=== PATIENT | female | born 1950 | race Hispanic/Latino ===

== ENCOUNTER → 2021-04-21 | Outpatient (CLI) | payer OTHER ==
[~2021-04-21] MED LIST: ALEN70TA80 PO; GABA300C PO; LEVE-43 PO; MELO-108 PO; MONT10TA32 PO; OMEP40CA21 PO; PIND10TA2 PO; SERT50TA PO
== END | disposition home or self-care (01) ==
LOC: CANSCHCLI → SHCH 14:57
PROVIDERS: ATTEND Internal Medicine Cardiovascular Disease
DX: Z09 Encounter for follow-up examination after completed treatment for conditions other than malignant neoplasm (principal)
CPT/HCPCS: 93971

== ENCOUNTER 2023-08-24 09:42 | Day surgery (SDC) | payer OTHER ==
[2023-08-20 12:29] LABS: BASOPHILS # (AUTO) 0.03 K/uL (0.00-0.20); BASOPHILS % (AUTO) 0.5 % (0.0-5.0); EOSINOPHILS # (AUTO) 0.11 K/uL (0.00-0.70); IMMATURE GRANULOCYTE ABSOLUTE 0.01 K/uL (0-1); LYMPHOCYTES # (AUTO) 1.9 K/uL (1.0-4.8); LYMPHOCYTES % (AUTO) 34.6 % (21.0-51.0); MEAN CORPUSCULAR HEMOGLOBIN 33.4 pg (27.0-33.0); MEAN CORPUSCULAR HGB CONC 34.1 g/dL (32.0-36.0); MEAN CORPUSCULAR VOLUME 98.1 fL (79-99); MONOCYTES # (AUTO) 0.6 K/uL (0.1-1.0); MONOCYTES % (AUTO) 10.8 % (3.0-13.0); NEUTROPHILS # (AUTO) 2.9 K/uL (1.8-7.7); NEUTROPHILS % (AUTO) 51.9 % (40.0-77.0); PLATELET COUNT (AUTO) 205 K/uL (130-400); RED BLOOD CELL COUNT(AUTO) 3.77 MIL/uL (4.00-5.50); RED CELL DISTRIBUTION WIDTH 11.9 % (11.0-15.5); WHITE BLOOD COUNT (AUTO) 5.6 K/uL (4.8-10.8)
[2023-08-20 12:45] LABS: INR 0.98 (0.85-1.15); PROTHROMBIN TIME 11.4 SEC (9.6-11.6)
[2023-08-20 12:46] LABS: CREATININE 0.9 mg/dL (0.5-1.5); POTASSIUM 4.8 mmol/L (3.5-5.1)
[2023-08-20 12:47] LABS: PARTIAL THROMBOPLASTIN TIME 29.4 SEC (26.3-35.5)
[2023-08-20 13:03] VITALS: BP 178/71; PULSE 80; RESP 16
[~2023-08-24] VITALS: Ht 162.6 cm; Wt 59.9 kg
[~2023-08-24 09:42] MED LIST changes: -ALEN70TA80 PO; +CLON0.1T PO; -GABA300C PO; -MELO-108 PO; -MONT10TA32 PO; -OMEP40CA21 PO; -PIND10TA2 PO; -SERT50TA PO; +SUCR1ORA15 PO
[2023-08-24 10:07] VITALS: BP 100/44; PULSE 94; RESP 16
[2023-08-24] MEDS ORDERED: 0.9%NACL 1000ML 1,000 ML IV ONE (10:24)
[2023-08-24] MEDS ORDERED: CITA10TA89 PO (11:25)
[2023-08-24] MEDS ORDERED: METO-408 PO (11:25)
[2023-08-24] MEDS ORDERED: [UNRECOGNIZED DRUG - OTHER] PO (11:25)
[2023-08-24] MEDS ORDERED: MULT-1103 PO (11:25)
[2023-08-24] MEDS ORDERED: CALC1TAB2 PO (11:25)
[2023-08-24] MEDS ORDERED: TIZA-194 PO (11:26)
[2023-08-24] MEDS ORDERED: MELO-108 PO (11:26)
[2023-08-24] MEDS ORDERED: CAND32TA22 PO (11:26)
[2023-08-24] MEDS ORDERED: PREG50CA64 PO (11:26)
[2023-08-24] MEDS ORDERED: ROSU10TA28 PO (11:26)
[2023-08-24] MEDS ORDERED: LIDOCAINE HCL 400MG/20ML VIAL ONE (14:27)
[2023-08-24] MEDS ORDERED: NITROGLYCERIN 50MG VIAL ONE (14:28)
[2023-08-24] MEDS ORDERED: FENTANYL CITRATE PF 50 MCG/1 ML 2ML VIAL ONE (14:28)
[2023-08-24] MEDS ORDERED: MIDAZOLAM HCL 1 MG/ML 2ML VIAL ONE ×2 (14:28→14:59)
[2023-08-24] MEDS ORDERED: IODIXANOL 320 MG/ML 100 ML VIAL ONE (14:28)
[2023-08-24] MEDS ORDERED: HEPARIN 10,000 UNIT/10ML (1,000 UNIT/ML) VIAL ONE (14:28)
[2023-08-24] MEDS ORDERED: GLUCAGON 1MG KIT 1 MG ML IM PRN (15:30)
[2023-08-24] MEDS ORDERED: DEXTROSE 50%-WATER 50 ML DISP.SYRIN IV PRN (15:30)
[2023-08-24] MEDS ORDERED: 0.9%NACL 1000ML 1,000 ML IV SCH (15:30)
[2023-08-24 15:55] VITALS: BP 152/72; PULSE 71; RESP 14
== END 2023-08-24 18:35 | disposition home or self-care (01) ==
LOC: DAH 09:42
PROVIDERS: ATTEND Internal Medicine Cardiovascular Disease
DX: I25.119 Atherosclerotic heart disease of native coronary artery with unspecified angina pectoris (principal); I11.9 Hypertensive heart disease without heart failure; E78.49 Other hyperlipidemia; K55.059 Acute (reversible) ischemia of intestine, part and extent unspecified; G90.9 Disorder of the autonomic nervous system, unspecified; G51.9 Disorder of facial nerve, unspecified; I87.2 Venous insufficiency (chronic) (peripheral); K55.1 Chronic vascular disorders of intestine; Z95.0 Presence of cardiac pacemaker; Z82.49 Family history of ischemic heart disease and other diseases of the circulatory system; Z82.3 Family history of stroke; Z80.9 Family history of malignant neoplasm, unspecified; Z79.899 Other long term (current) drug therapy; Z98.890 Other specified postprocedural states
CPT/HCPCS: 80048; 85025; 85610; 85730; 36415; 36245; 96360; 96361; 75726; 36252; A4223 ×3; C1894 ×2; C1760; J3010; J3490 ×2; J7030; J2250 ×2; J1644; Q9967; A4215; A4222; A4221; A4663; A4216; A4606; 99156; 99157

== ENCOUNTER 2024-09-08 13:57 | Observation (INO) | payer OTHER ==
[~2024-09-08] VITALS: Ht 160 cm; Wt 61.8 kg
[~2024-09-08 13:57] MED LIST changes: +CALC1TAB2 PO; +CAND32TA22 PO; +CITA10TA89 PO; +MELO-108 PO; +METO-408 PO; +MULT-1103 PO; +PREG50CA64 PO; +ROSU10TA72 PO; +TIZA-194 PO; +[UNRECOGNIZED DRUG - OTHER] PO
--- NOTE | 2024-09-08 14:58 | EKG ---
[facility] Test Date: 2024-09-08 Test Time: 14:51:43 Pat Name: CAMILLA RIVAS Department: ED Room: 402 Gender: F Insurance Specialist: [id number] : 1950 Requested By: SUHA POE Order Number: [id number] Reading MD: Jm Warren Measurements Intervals [place] Rate: 70 P: 60 AK: 180 QRS: 52 QRSD: 105 T: 50 QT: 392 QTc: 425 Interpretive Statements Sinus rhythm Probable left ventricular hypertrophy Compared to ECG 07/11/2020 16:17:35 Possible ischemia no longer present Electronically Signed On 09-09-2024 14:09:04 [employer] by Jm Warren Please click the below link to view image of tracing.
[2024-09-08 15:48] LABS: BASOPHILS # (AUTO) 0.05 K/uL (0.00-0.20); EOSINOPHILS # (AUTO) 0.11 K/uL (0.00-0.70); EOSINOPHILS % (AUTO) 2.3 % (0.0-8.0); IMMATURE GRANULOCYTE ABSOLUTE 0.01 K/uL (0-1); LYMPHOCYTES # (AUTO) 1.4 K/uL (1.0-4.8); LYMPHOCYTES % (AUTO) 28.3 % (21.0-51.0); MEAN CORPUSCULAR HEMOGLOBIN 33.2 pg (27.0-33.0); MEAN CORPUSCULAR VOLUME 94.7 fL (79-99); MONOCYTES # (AUTO) 0.9 K/uL (0.1-1.0); MONOCYTES % (AUTO) 17.7 % (3.0-13.0); NEUTROPHILS # (AUTO) 2.5 K/uL (1.8-7.7); NEUTROPHILS % (AUTO) 50.5 % (40.0-77.0); PLATELET COUNT (AUTO) 239 K/uL (130-400); RED CELL DISTRIBUTION WIDTH 11.9 % (11.0-15.5); WHITE BLOOD COUNT (AUTO) 4.9 K/uL (4.8-10.8)
[2024-09-08 16:10] LABS: CREATINE KINASE, TOTAL 230 U/L (21-232); CREATININE 0.9 mg/dL (0.5-1.0); POTASSIUM 4.6 mmol/L (3.5-5.1)
[2024-09-08 16:44] LABS: APPEARANCE,URINE CLOUDY (CLEAR); BILIRUBIN,URINE NEGATIVE (NEGATIVE); COLOR,URINE LIGHT-YELLOW (YELLOW); GLUCOSE, URINE (UA) NEGATIVE (NEGATIVE); KETONES,URINE NEGATIVE (NEGATIVE); LEUKOCYTE ESTERASE ,URINE NEGATIVE Leu/uL (NEGATIVE); NITRATE,URINE NEGATIVE (NEGATIVE); OCCULT BLOOD,URINE NEGATIVE (NEGATIVE); PROTEIN,URINE NEGATIVE (NEGATIVE); SQUAMOUS EPITHELIAL CELL,UR RARE /HPF (0-2); UROBILINOGEN,URINE 0.2 mg/dL (0.2-1.0)
--- NOTE | 2024-09-08 18:01 | HMCIMG ---
Exam Type: CT HEAD/BRAIN W/O CONTRAST Clinical Information: Dizziness Comparison: None CT Dose Index (CTDI): 57.33 mGy Dose Length Product (DLP): 956.79 total mGy-cm Findings: The examination shows atrophy. There is low attenuation throughout the periventricular white matter locations, consistent with chronic small vessel ischemic changes. No acute intra- or extra-axial fluid collections are seen. There is no evidence of acute or chronic hemorrhage. There is no mass effect or shift of midline structures. There are no areas to suggest acute infarct. The skull windows show no significant abnormalities. IMPRESSION: 1. ATROPHY AND CHRONIC SMALL VESSEL ISCHEMIC CHANGES. This study was performed using dose reduction techniques to include automated exposure control and/or adjustment of the mA and/or kV according to patient size.
--- NOTE | 2024-09-08 18:24 | ERN ---
General Chief Complaint: Dizzy/Light Headed Stated Complaint: SENT BY PHYS Time Seen by MD: 15:02 History of Present Illness Initial Comments Of year old female came in for dizziness. Patient says that she feels the room is spinning. Patient otherwise denies weakness in upper and lower extremities. Patient denies changes in her voice. Patient otherwise has no concerns. Allergies: Coded Allergies: No Known Allergies (Unverified Allergy, Unknown, 07/15/20) Home Meds Reported Medications Pregabalin (Pregabalin) 50 Mg Capsule, 50 MG PO AM, CAP 08/24/23 Candesartan Cilexetil (Candesartan Cilexetil) 32 Mg Tablet, 32 MG PO AD PRN for htn, TAB 08/24/23 Tizanidine HCl (Tizanidine HCl) 2 Mg Tablet, 4 MG PO AM, TAB 08/24/23 Rosuvastatin Calcium (Rosuvastatin Calcium) 10 Mg Tablet, 10 MG PO HS, TAB 08/24/23 Meloxicam (Meloxicam) 15 Mg Tablet, 15 MG PO HS PRN for PAIN, TAB 08/24/23 Citalopram Hydrobromide (Citalopram HBr) 10 Mg Tablet, 10 MG PO HS, TAB 08/24/23 Metoprolol Succinate (Metoprolol Succinate) 25 Mg Tab.er.24h, 25 MG PO AD PRN for palpitations, TAB 08/24/23 Multivitamins-Min/FA/Ginkgo (One Daily For Women 50+ Adv Tb) 400 Mcg-120 Mg Tablet, 1 EACH PO AM, TAB 08/24/23 Calcium Carbonate/Vitamin D3 (Caltrate 600 + D Tablet) 600 Mg Calcium-20 Mcg (800 Unit) Tablet, 1 EACH PO BID, TAB 08/24/23 [paracetamd chlorzox] No Conflict Check, 1 TAB PO AM 08/24/23 Sucralfate (Sucralfate) 1 Gram/10 Ml Oral.susp, 1 GM PO BID, ML 08/20/23 Clonidine HCl (Clonidine HCl) 0.1 Mg Tablet, 0.1 MG PO TID PRN for INCREASED BLOOD PRESSURE, TAB 08/20/23 Levetiracetam (Keppra) 500 Mg Tablet, 1000 MG PO BID, TAB 07/12/20 Past Medical History Past Medical History: High Cholesterol, Hypertension Past Surgical History: Hysterectomy, Pacer/AICD ROS Dictation CONSTITUTIONAL: Negative except for HPI HEAD/FACE: Negative except for HPI EENT: Negative except for HPI RESPIRATORY: Negative except for HPI GASTROINTESTINAL/ABDOMINAL: Negative except for HPI GENITOURINARY: Negative except for HPI MUSCULOSKELETAL: Negative except for HPI INTEGUMENTARY: Negative except for HPI NEUROLOGICAL/PSYCH: Negative except for HPI HEMATOLOGIC/LYMPHATIC: Negative except for HPI All Systems Negative, Except as noted above. 13 point review of systems assessed and all negative except for above. Physical Exam Physical Exam Dictation Vital Signs reviewed General Appearance: Alert, oriented x 3, no acute distress, well developed, nourished. Head and Face: non-traumatic. Eyes: PERRL, pink conjunctivas, eyelid no trauma, anterior chamber with arcus senilis. Ears: Pinnas intact and no signs of trauma or erythema ear canals clear and no discharge TM no erythema Nose: No discharge, no bleeding. Oropharynx: Mouth normal, tongue pink, pharynx clear,no erythema, tonsils no exudates, no abscesses noted, mucous membrane moist Neck: Supple, non-tender, no thyromegaly, no masses, no JVD, no bruits Breast:Deferred Chest:No tenderness, no crepitus, no paradoxical movement, no retractions Lungs:Clear, well-ventilated, symmetric, no rales, no wheezing, no rhonchi, no stridor, good breath sounds bilaterally Heart: Regular rate, regular rhythm, no murmur, no gallops Vascular: no peripheral edema, Abdomen: Soft, positive bowel sounds, nondistended, no guarding, nontender, no rebound, no masses no hepatomegaly, no splenomegaly, no Bruno's sign, no hernias. Rectal: Deferred Genital: Deferred Neurological: Normal speech, motor function intact, sensory function intact Musculoskeletal: Neck nontender, full range of motion, back nontender, full range of motion, Extremities: nontender, full range of motion Skin: Color pink, dry, no turgor, no rash, no lacerations, no abrasions, no contusions. Lymphatic: Deferred Results Laboratory and Microbiology Lab and Micro Result Laboratory Tests Test 09/08/24 15:18 09/08/24 16:10 White Blood Count 4.9 K/uL (4.8-10.8) Red Blood Count 3.80 MIL/uL (4.00-5.50) L Hemoglobin 12.6 g/dL (12.0-16.0) Hematocrit 36.0 % (36-48) Mean Corpuscular Volume 94.7 fL (79-99) Mean Corpuscular Hemoglobin 33.2 pg (27.0-33.0) H Mean Corpuscular Hemoglobin Concent 35.0 g/dL (32.0-36.0) Red Cell Distribution Width 11.9 % (11.0-15.5) Platelet Count 239 K/uL (130-400) Mean Platelet Volume 10.0 fL (7.5-10.5) Immature Granulocyte % (Auto) 0.2 % (0-1) Neutrophils (%) (Auto) 50.5 % (40.0-77.0) Lymphocytes (%) (Auto) 28.3 % (21.0-51.0) Monocytes (%) (Auto) 17.7 % (3.0-13.0) H Eosinophils (%) (Auto) 2.3 % (0.0-8.0) Basophils (%) (Auto) 1.0 % (0.0-5.0) Neutrophils # (Auto) 2.5 K/uL (1.8-7.7) Lymphocytes # (Auto) 1.4 K/uL (1.0-4.8) Monocytes # (Auto) 0.9 K/uL (0.1-1.0) Eosinophils # (Auto) 0.11 K/uL (0.00-0.70) Basophils # (Auto) 0.05 K/uL (0.00-0.20) Absolute Immature Granulocyte (auto 0.01 K/uL (0-1) Nucleated Red Blood Cells 0.0 % (0.0-0.19) White Cell Morphology Comment See comments Sodium Level 137 mmol/L (136-145) Potassium Level 4.6 mmol/L (3.5-5.1) Chloride Level 101 mmol/L (101-111) Carbon Dioxide Level 31 mmol/L (21-32) Blood Urea Nitrogen 15 mg/dL (7-18) Creatinine 0.9 mg/dL (0.5-1.0) Glomerular Filtration Rate Calc 67 mL/min (>90) Random Glucose 76 mg/dL (70-105) Lactic Acid Level 1.7 mmol/L (0.8-2.5) Total Calcium 10.0 mg/dL (8.5-10.1) Total Creatine Kinase 230 U/L (21-232) Troponin I High Sensitivity 4 ng/L (4-50) Procalcitonin < 0.05 ng/mL (0.05-0.5) L Urine Color LIGHT-YELLOW (YELLOW) Urine Appearance CLOUDY (CLEAR) H Urine pH 7.0 (5.0-8.0) Urine Specific [place] 1.012 (1.001-1.031) Urine Protein NEGATIVE mg/dL (NEGATIVE) Urine Glucose (UA) NEGATIVE mg/dL (NEGATIVE) Urine Ketones NEGATIVE mg/dL (NEGATIVE) Urine Occult Blood NEGATIVE (NEGATIVE) Urine Nitrate NEGATIVE (NEGATIVE) Urine Bilirubin NEGATIVE mg/dL (NEGATIVE) Urine Urobilinogen 0.2 mg/dL (0.2-1.0) Urine Leukocyte Esterase NEGATIVE [place]/uL Urine RBC 2-5 /HPF (0-1) H Urine WBC 2-5 /HPF (0-1) H Urine Squamous Epithelial Cells RARE /HPF (0-2) Urine Bacteria None /HPF (None Seen) MDM MDM: Differential diagnosis: Rationale: Tests considered and ordered secondary to shared decision making include: Previous outside records reviewed: Old ER visits. Risk of complication and/or morbidity or mortality of patient management: None Medications-Per medication reconciliation Need for hospitalization: Patient does meet criteria for hospitalization. Need for emergency major/minor surgery: No There are no social concerns with this patient. Prescription drug management Prescriptions will include symptomatic care Patient's prior external medical records from other ER visits were reviewed by me as indicated. Prior testing and results from previous visits were reviewed. Prior tests were taken into account with medical decision making and resource ut ilization, independent historian/historians were used to obtain complete medical history. I independently interpreted the test that were performed, results were reviewed by me and considered findings on radiology if ordered. Medical management and examination interpretation discussions were had by me with other qualified healthcare professionals as indicated for the patient's car e. ED Course Orders Procedure Category Date Status Time Vital Signs Per CPOE 09/08/24 Transmitted Routine 14:49 Oxygen By Nc/Pulse Ox CPOE 09/08/24 Transmitted 14:49 Iv Insertion CPOE 09/08/24 Transmitted 14:49 Cbc With Differential LAB 09/08/24 Complete 14:49 Cardiac Panel LAB 09/08/24 Complete 14:49 12 Lead Ekg Tracing- EKG 09/08/24 Complete Technical 14:49 Basic Metabolic Panel LAB 09/08/24 Complete 15:00 Lactic Acid LAB 09/08/24 Complete 15:00 Procalcitonin LAB 09/08/24 Complete 15:00 Troponin I High LAB 09/08/24 Complete Sensitivity 15:00 Urinalysis LAB 09/08/24 Complete W/Microscopic 15:00 Ct Head/Brain W/O CT 09/08/24 Resulted Contrast 16:38 Vital Signs Date Time Temp Pulse Resp B/P (MAP) Pulse Ox O2 Delivery O2 Flow Rate FiO2 09/08/24 17:08 98.1 79 18 151/60 97 Room Air* 0 21 09/08/24 14:50 98.1 90 20 130/66 99 Room Air 0 DX & DISP Disposition: Inpatient Departure Impression: Primary Impression: Dizziness Condition: Stable Referrals: CHINMAY SAMS (PCP) [place] EM MD Sep 08, 2024 18:24
--- NOTE | 2024-09-08 18:28 | HP ---
History of Present Illness Reason for Visit: dizziness History of Present Illness Ms. Savage is a 74-year-old female that was seen and examined today on 09/08/2024. Patient is a extremely good historian and personal health. Patient is very talkative. Patient states that she came to the emergency department with a chief complaint of dizziness. Onset was 09/07/2024 at 7:10 a.m.. Location is to head. Duration is about 12nd episodes. Episodes are on and off. Patient reports 10 episodes today. Dizziness is exacerbated with physical activity such as standing up and walking. Symptoms are seemingly alleviated with rest. Character is described as loss of balance and patient walks sideways to mitigate loss of balance. Patient denies any associated chest pain or shortness of breath. Patient reports that she has been following her ornamental metal worker helper for this problem, Dr. GUERITA Warren and has an appointment scheduled with him on September 25, 2023 in the outpatient setting. Today in the emergency department CBC unremarkable, BMP unremarkable, troponin unremarkable, urinalysis unremarkable, vital signs within normal limits. CT of head unremarkable. Emergency room physician recommended that patient be admitted with a diagnosis of dizziness. Past Medical History Patient History: Carcinomas FATHER, Cardiovascular disease FATHER, Completed stroke MOTHER, ADDITIONAL PAST MEDICAL HISTORY: [Hypertension, hyperlipidemia, subdural hematoma, depression, osteoporosis, recurrent syncope, autonomic dysfunction, chronotropic incompetence, lymphoma in remission ] SOCIAL HISTORY: [Negative for smoking, alcohol use, drug use. Patient lives with her spouse Walt Savage. Patient has good access to health care through her insurance. Patient denies difficulty paying her bills. Patient is typically independent of all her ADLs. ] SURGICAL HISTORY: [Dual-chamber ppm, abdominal aortogram, craniotomy, hysterectomy, left breast lumpectomy] Review of Systems General: No Fever, No Chills, No Night Sweats, No Fatigue, No Malaise, No Appetite, No Other HEENT: No Head Aches, No Visual Changes, No Eye Pain, No Ear Pain, No Dysphasia, No Sinus Congestion, No Post Nasal Drip, No Sore Throat, No Other Pulmonary: No Dyspnea, No Cough, No Pleuritic Chest Pain, No Other Cardiovascular: Lt Headedness; No: Chest Pain, Palpitations, Orthopnea, Paroxysmal Noc. Dyspnea, Edema, Other Gastrointestinal: No: Nausea, Vomiting, Abdominal Pain, Diarrhea, Constipation, Melena, Hematochezia, Other Genitourinary: No Dysuria, No Frequency, No Incontinence, No Hematuria, No Retention, No Other Musculoskeletal: No: other, neck pain, shoulder pain, arm pain, back pain, hand pain, leg pain, foot pain Skin: No Urticaria, No Rash, No Other Neurological: No: Weakness, Numbness, Incoordination, Change in speech, Confusion, Seizures, Other Allergies: Coded Allergies: No Known Allergies (Unverified Allergy, Unknown, 07/15/20) Scheduled Amlodipine Besylate (Amlodipine Besylate), 1 TAB PO DAILY, (Reported) Aspirin (Aspirin 81MG Chew Tab), 81 MG PO DAILY, (Reported) Biotin (Biotin), 10,000 MCG PO DAILY, (Reported) Clopidogrel Bisulfate (Clopidogrel), 1 TAB PO DAILY, (Reported) Duloxetine HCl (Duloxetine HCl), 30 MG PO BID, (Reported) Gabapentin (Gabapentin), 1 CAP PO BID, (Reported) Levetiracetam (Keppra), 1,000 MG PO BID, (Reported) Metoprolol Succinate (Metoprolol Succinate), 1 TAB PO DAILY, (Reported) Rosuvastatin Calcium (Rosuvastatin Calcium), 10 MG PO HS, (Reported) Sucralfate (Sucralfate), 1 GM PO BID, (Reported) Tizanidine HCl (Tizanidine HCl), 4 MG PO AM, (Reported) [paracetamd chlorzox], 1 TAB PO AM, (Reported) Scheduled PRN Candesartan Cilexetil (Candesartan Cilexetil), 32 MG PO AD PRN for htn, (Reported) Discontinued Medications Calcium Carbonate/Vitamin D3 (Caltrate 600 + D Tablet), 1 EACH PO BID, (Reported) Citalopram Hydrobromide (Citalopram HBr), 10 MG PO HS, (Reported) Clonidine HCl (Clonidine HCl), 0.1 MG PO TID PRN for INCREASED BLOOD PRESSURE, (Reported) Meloxicam (Meloxicam), 15 MG PO HS PRN for PAIN, (Reported) Metoprolol Succinate (Metoprolol Succinate), 25 MG PO AD PRN for palpitations, (Reported) Multivitamins-Min/FA/Ginkgo (One Daily For Women 50+ Adv Tb), 1 EACH PO AM, (Reported) Pregabalin (Pregabalin), 50 MG PO AM, (Reported) Exam Vital Signs Vital Signs Date Time Temp Pulse Resp B/P (MAP) Pulse Ox O2 Delivery O2 Flow Rate FiO2 09/08/24 17:08 98.1 79 18 151/60 97 Room Air* 0 21 General Appearance: Alert, Oriented X3, Cooperative, No acute distress HEENT: Atraumatic, PERRLA, EOMI, Mucous membr. moist/pink Respiratory: Clear to auscultation, Normal air movement, NL respiratory effort Cardiovascular: Regular rate, Regular rhythm, Normal S1, Normal S2 Abdominal: Normal bowel sounds, Soft, No tenderness Extremities: No edema Skin: No rashes, No breakdown, No significant lesion Neuro: Normal speech, Strength at 5/5 X4 ext, Sensation intact, Cranial nerves 3-12 NL Psych/Mental Status: Mental status NL, Mood NL, Thoughts/Content NL Assessment/Plan ASSESSMENT: [ Dizziness, POA Weakness and deconditioning, POA Hyperlipidemia Depression Osteoporosis Recurrent syncope Autonomic dysfunction Chronotropic incompetence] PLAN: [ Admit patient to medical-surgical floor as inpatient status. Defer decision to consult cardiology service to daytime service. Patient does have an outpatient appointment with her ornamental metal worker helper, Dr. GUERITA Warren on September 25, 2023. Patient states that this dizziness has been longstanding on and off for several years. And is been managed in the outpatient setting. Initiate fall precautions. Follow up with the interrogation of dual-chamber permanent pacemaker. Orthostatic vital signs Neuro checks every 4 hours with the vital signs (check GCS, level of consciousness, extremity movement, pupil reaction, hand grasp strength, speech clarity) Physical therapy for evaluation and treatment Consider resuming home medications once they are reconciled Famotidine 20 mg by mouth once daily for your GI prophylaxis DVT prophylaxis, Lovenox 40 mg subcutaneously daily. ADVANCED CARE PLANNING 1. Which of the following were discussed? Hospice Care - Yes Therapeutic options - Yes Advance Directives - Yes- patient states that she does not have any advance directives in place at this time, however her has been can make decisions for her if she becomes unable. Other discussions - patient wishes to remain a full code at this time 2. Discussed with who? Patient 3. Voluntary nature of this service was explained to the patient? Yes 4. Amount of time spent - 16 minutes __ 5. Reviewed by Physician? (if this service was performed by NPP) Yes This document was generated in part using voice recognition software, occasional wrong word or sound alike substitutions may have occurred due to the inherent limitations of voice recognition software. Read the chart carefully and recognize using context, where the substitutions have occurred. Although every effort was made to edit the content, marine steam fitter helper and typing errors may occur ATTESTATION BY PHYSICIAN I have seen and examined the patient. I reviewed the documentation, medical decision making, and treatment plan as noted by the mid-level provider above. I agree with the findings and plan of care. KAMILLE ROSA [facility] Sep 08, 2024 18:28
[2024-09-08] MEDS ORDERED: acetaMINOPHEN 325 MG TAB PO PRN (18:30)
[2024-09-08] MEDS ORDERED: hydrALAZine 20MG/ML VIAL IV PRN (18:30)
[2024-09-08] MEDS ORDERED: ondanSETRON 4MG INJ IV PRN (18:30)
[2024-09-08] MEDS ORDERED: morPHINE 2 MG SYG IVP PRN (18:30)
--- NOTE | 2024-09-08 21:46 | NUR ---
ORTHO BP FOLLOWS; LYIN/62 SITTIN/70 STANDIN/76
[2024-09-08 22:06] VITALS: BP 160/66; PULSE 70; RESP 18; TEMP 98.3
[2024-09-08] MEDS ORDERED: GABA-529 PO (22:35)
[2024-09-08] MEDS ORDERED: METO-391 PO (22:35)
[2024-09-08] MEDS ORDERED: AMLO2.5T4 PO (22:35)
[2024-09-08] MEDS ORDERED: DULO30CA52 PO (22:35)
[2024-09-08] MEDS ORDERED: CLOP75TA32 PO (22:35)
[2024-09-08] MEDS ORDERED: BIOT5000 PO (22:35)
[2024-09-08] MEDS ORDERED: ASPI-1005 PO (22:35)
[2024-09-09] VITALS: BP_SYST 138; BP_SYST 148; BP_SYST 176; BP_DIAS 71; BP_DIAS 72; BP_DIAS 74; PULSE 71; PULSE 72; PULSE 74; RESP 18; TEMP 98.1
[2024-09-09 04:00] VITALS: BP 149/66; PULSE 74; RESP 18; TEMP 98.2
[2024-09-09] MEDS: SUCRALFATE 1 GM/10 ML PO SCH (07:46)
[2024-09-09] MEDS: ENOXAPARIN SODIUM 40 MG/0.4 ML SYRINGE SQ SCH (07:47)
[2024-09-09] MEDS: duloXETine HCL 30 MG CAP PO SCH (07:47)
[2024-09-09] MEDS: metOPROLol sucCINATE 50 MG TAB.SR.24H PO SCH (07:47)
[2024-09-09] MEDS: LoSARTan 100 MG TABLET PO SCH (07:47)
[2024-09-09] MEDS: leveTIRACEtam 500 MG TABLET PO SCH (07:47)
[2024-09-09] MEDS: FAMOTIDINE 20MG TAB PO SCH (07:47)
[2024-09-09] MEDS: amLODIPine 2.5 MG TAB PO SCH (07:48)
[2024-09-09] MEDS: cloPIDOgrel 75MG TAB PO SCH (07:48)
[2024-09-09] MEDS: ASPIRIN 81MG CHEW TAB PO SCH (07:48)
[2024-09-09] MEDS: TIZANIDINE HCL 2 MG TABLET PO SCH (07:49)
[2024-09-09] MEDS: BIOTIN 10000 MCG PO SCH (07:50)
[2024-09-09 08:00] VITALS: BP 133/58; PULSE 84; RESP 19; TEMP 98.8; O2SAT 97
[2024-09-09] MEDS ORDERED: [UNRECOGNIZED DRUG - OTHER] PO SCH (09:00)
[2024-09-09 12:00] VITALS: BP_SYST 105; BP_SYST 108; BP_SYST 114; BP_DIAS 47; BP_DIAS 49; BP_DIAS 54; PULSE 65; PULSE 66; PULSE 68; RESP 18; TEMP 98.3
--- NOTE | 2024-09-09 12:47 | NUR ---
discharge PER ABHI MCCLAIN CONTINUOUS DRIER OPERATOR HOLD DC FOR NOW UNTIL MD AND HERSELF ROUND ON PATIENT.
--- NOTE | 2024-09-09 16:12 | NUR ---
DISCHARGE HOSPITALIST DR GOLDBERG STATED PATIENT COULD BE DISCHARGED HOME.
--- NOTE | 2024-09-09 16:25 | NUR ---
DISCHARGE PATIENT DISCHARGED AT THIS TIME VIA WHEELCHAIR, AT SIDE.
[2024-09-09] MEDS ORDERED: GABApentin 100 MG CAPSULE PO SCH (21:00)
[2024-09-09] MEDS ORDERED: atorVAStatin 20 MG TABLET PO SCH (21:00)
--- NOTE | 2024-09-09 22:37 | PN ---
[facility] PROGRESS NOTE Date of Service: Sep 09, 2024 Time of Service: 22:37 SUBJECTIVE: [ ] REVIEW OF SYSTEMS CONSTITUTIONAL: Denies fevers, chills, or night sweats. No unintentional weight loss reported. NEUROLOGICAL: Denies headache, amaurosis fugax, motor weakness, sensory deficit, vertigo/spinning sensation, gait abnormalities, or tremors. ENT: No hearing loss, otalgia, otorrhea, rhinitis, rhinorrhea, hoarseness, or sore throat. CARDIOVASCULAR: Denies any exertional angina, dyspnea on exertion, orthopnea, paroxysmal nocturnal dyspnea, palpitations, life-threatening arrhythmias, claudication. PULMONARY: Denies any shortness of breath, cough, phlegm/sputum, hemoptysis, pleuritic chest pain. SLEEP: Denies morning headaches, daytime somnolence or napping. Denies difficulty falling asleep, staying asleep, waking from sleep. Denies knowledge of snoring. GASTROINTESTINAL: Denies any type of dysphagia to either liquids or solids. Denies nausea, vomiting, pyrosis, early satiety, abdominal pain, diarrhea, constipation, or changes in stool consistency or caliber. Denies coffee-ground emesis, hematemesis, hematochezia, or melanotic stools. GENITOURINARY: Denies frequency, urgency, nocturia, hematuria or incontinence (Storage/Irritative symptoms.) Low urinary stream, straining to void, urinary i ntermittency or hesitancy, splitting of the voiding stream, terminal dribbling. ENDOCRINOLOGIC: Denies polyuria, polydipsia, polyphagia or heat/cold intolerances. HEMATOLOGIC: Denies thrombophilia/previous clots, or coagulopathy/bleeding disorders. ONCOLOGIC: Denies personal history of malignancy. DERMATOLOGIC: Denies rashes or pruritus. PSYCHIATRIC: Denies any suicidal or homicidal ideation. Denies hallucinations. PHYSICAL EXAM GENERAL APPEARANCE: The patient is awake, alert, and oriented, in no acute cardiopulmonary distress. NEUROLOGICAL: Cranial nerves II-XII grossly intact. Motor is 5/5 in bilateral upper and lower extremities proximal to distal. No sensory deficits. HEENT: Face is symmetric. Pupils are equal and reactive. Extraocular movements are intact. NECK: Supple. No JVD. No thyromegaly. No submental, submandibular, pre- /postauricular, occipital or supraclavicular lymphadenopathy. CHEST: Normal chest expansion. No Telemetry. LUNGS: Absence of any rales, rhonchi or any wheezing. CARDIOVASCULAR: Regular. S1 and S2 normal. No appreciable rubs, murmurs or gallops. ABDOMEN: Soft, nontender, and nondistended. There is no rebound, voluntary guarding, or rigidity. : Deferred. No Hobson. EXTREMITIES: Non-edematous and not cyanotic. No clubbing. Good capillary refill. SKIN: No skin breakdown. LABS: Laboratory: Test 09/08/24 16:10 09/08/24 15:18 Range/Units Urine Color LIGHT-YELLOW YELLOW Urine Appearance CLOUDY H CLEAR Urine pH 7.0 5.0-8.0 Urine Specific Clarence 1.012 1.001-1.031 Urine Protein NEGATIVE NEGATIVE mg/dL Urine Glucose (UA) NEGATIVE NEGATIVE mg/dL Urine Ketones NEGATIVE NEGATIVE mg/dL Urine Occult Blood NEGATIVE NEGATIVE Urine Nitrate NEGATIVE NEGATIVE Urine Bilirubin NEGATIVE NEGATIVE mg/dL Urine Urobilinogen 0.2 0.2-1.0 mg/dL Urine Leukocyte Esterase NEGATIVE NEGATIVE [place]/uL Urine RBC 2-5 H 0-1 /HPF Urine WBC 2-5 H 0-1 /HPF Urine Squamous Epithelial Cells RARE 0-2 /HPF Urine Bacteria None None Seen /HPF White Blood Count 4.9 4.8-10.8 K/uL Red Blood Count 3.80 L 4.00-5.50 MIL/uL Hemoglobin 12.6 12.0-16.0 g/dL Hematocrit 36.0 36-48 % Mean Corpuscular Volume 94.7 79-99 fL Mean Corpuscular Hemoglobin 33.2 H 27.0-33.0 pg Mean Corpuscular Hemoglobin Concent 35.0 32.0-36.0 g/dL Red Cell Distribution Width 11.9 11.0-15.5 % Platelet Count 239 130-400 K/uL Mean Platelet Volume 10.0 7.5-10.5 fL Immature Granulocyte % (Auto) 0.2 0-1 % Neutrophils (%) (Auto) 50.5 40.0-77.0 % Lymphocytes (%) (Auto) 28.3 21.0-51.0 % Monocytes (%) (Auto) 17.7 H 3.0-13.0 % Eosinophils (%) (Auto) 2.3 0.0-8.0 % Basophils (%) (Auto) 1.0 0.0-5.0 % Neutrophils # (Auto) 2.5 1.8-7.7 K/uL Lymphocytes # (Auto) 1.4 1.0-4.8 K/uL Monocytes # (Auto) 0.9 0.1-1.0 K/uL Eosinophils # (Auto) 0.11 0.00-0.70 K/uL Basophils # (Auto) 0.05 0.00-0.20 K/uL Absolute Immature Granulocyte (auto 0.01 0-1 K/uL Nucleated Red Blood Cells 0.0 0.0-0.19 % White Cell Morphology Comment See comments Sodium Level 137 136-145 mmol/L Potassium Level 4.6 3.5-5.1 mmol/L Chloride Level 101 101-111 mmol/L Carbon Dioxide Level 31 21-32 mmol/L Blood Urea Nitrogen 15 7-18 mg/dL Creatinine 0.9 0.5-1.0 mg/dL Glomerular Filtration Rate Calc 67 >90 mL/min Random Glucose 76 70-105 mg/dL Lactic Acid Level 1.7 0.8-2.5 mmol/L Total Calcium 10.0 8.5-10.1 mg/dL Total Creatine Kinase 230 21-232 U/L Troponin I High Sensitivity 4 4-50 ng/L Procalcitonin < 0.05 L 0.05-0.5 ng/mL Current Medications Medications (Trade) Dose Ordered Sig/Reanna Route PRN Reason Start Time Stop Time Status Last Admin Dose Admin Acetaminophen (TYLenol 325MG TAB) 650 mg Q6H PRN PO TEMPERATURE GREATER THAN 101.5 09/08/24 18:30 09/09/24 16:30 DC Amlodipine Besylate (NorvASC 2.5MG TAB) 2.5 mg DAILY PO 09/09/24 09:00 09/09/24 16:30 DC 09/09/24 07:48 2.5 MG Aspirin (Aspirin 81mg Chew Tab) 81 mg DAILY PO 09/09/24 09:00 09/09/24 16:30 DC 09/09/24 07:48 81 MG Atorvastatin Calcium (LIPItor 20MG) 20 mg HS PO 09/09/24 21:00 09/09/24 16:30 DC Clopidogrel Bisulfate (plaVIX 75MG) 75 mg DAILY PO 12/28/24 09:00 09/09/24 16:30 DC 09/09/24 07:48 75 MG Duloxetine HCl (CymbALTA 30 mg CAP) 30 mg BID PO 09/09/24 09:00 09/09/24 16:30 DC 09/09/24 07:47 30 MG Enoxaparin Sodium (Lovenox) 40 mg DAILY SQ 09/09/24 09:00 09/09/24 16:30 DC 09/09/24 07:47 40 MG Famotidine (Pepcid 20mg Tab) 20 mg DAILY PO 09/09/24 09:00 09/09/24 16:30 DC 09/09/24 07:47 20 MG Gabapentin (NEURontin 100 mg CAP) 100 mg BID PO 09/09/24 21:00 09/09/24 16:30 DC Home Med (Home Medication) DAILY PO 09/09/24 09:00 09/09/24 16:30 DC Hydralazine HCl (APRESOLine 20MG INJ) 10 mg Q6H PRN IV For:SBP above 160;DBP above 90 09/08/24 18:30 09/09/24 16:30 DC Levetiracetam (kepPRA 500 MG TABLET) 1,000 mg BID PO 09/09/24 09:00 09/09/24 16:30 DC 09/09/24 07:47 1,000 MG Losartan Potassium (CozAAR 100MG TAB) 100 mg DAILY PO 09/09/24 09:00 09/09/24 16:30 DC 09/09/24 07:47 100 MG Metoprolol Succinate (TopROL XL) 50 mg DAILY PO 09/09/24 09:00 09/09/24 16:30 DC 09/09/24 07:47 50 MG Miscellaneous Medication ([paracetamd chlorzox] ) 1 tab AM PO 09/09/24 09:00 09/08/24 23:13 DC Morphine Sulfate (morPHINE 2MG SYG) 2 mg Q4H PRN IVP SEVERE PAIN (7-10) 09/08/24 18:30 09/09/24 16:30 DC Ondansetron HCl (zoFRAN 4MG INJ) 4 mg Q6H PRN IV NAUSEA/VOMITING 09/08/24 18:30 09/09/24 16:30 DC Sucralfate (Carafate) 1 gm BID PO 09/09/24 09:00 09/09/24 16:30 DC 09/09/24 07:46 1 GM Tizanidine HCl (Tizanidine HCl) 4 mg AM PO 09/09/24 09:00 09/09/24 16:30 DC 09/09/24 07:49 4 MG DIAGNOSTICS / RADIOLOGY: [ ] ASSESSMENT: [ ] PLAN: [ ] BORIS MCCLAIN I [facility] Sep 09, 2024 22:37
--- NOTE | 2024-09-10 07:35 | DS ---
Discharge Summary Hospital Course Summary: Patient was discharged on 09/09/2024 at 1600 The patient is 74 year old female with history Hypertension, hyperlipidemia, subdural hematoma, depression, osteoporosis, recurrent syncope, autonomic dysfunction, chronotropic incompetence, lymphoma in remission. Patient has a dual chamber pace maker was admitted for dizziness. Patient is alert, comfortable no acute distress. EKG showed NSR. She denies any chest pain, palp itations, syncope, or shortness of breath. Patient reports dizziness has resolved. The patient already has n upcoming appointment scheduled with Dr. GUERITA Warren, for further evaluation. Patient is requesting to go home. She is stable with instructions to attend scheduled cardiology follow-up. Patient advised to return to nearest ER or hospital for worsening dizziness, syncope or chest pain. The power chart reviewed, vital signs, laboratory tests, imaging test and medications have been reviewed. Primary nurse reports no incidences overnight. Latest vital signs are stable. CBC and CMP are stable. She is medically stable and cleared for discharge. Advised to follow-up with PCP in 2 to 3 days for continued evaluation. Patient verbalized understanding of instructions and discharge plan. Medications have been reconciled. Assistant Professor Of Biology(s): Cardiology: Dr. Warren from [facility] Procedure(s): [place] [address] [id number] IMAGING REPORT Signed PATIENT: CAMILLA RIVAS MR#: [id number] : 1950 SEX: F AGE: 74 LOCATION: [facility] ORDER [id number] STATUS: REG ER REPORT#: [id number] SERVICE [id number] REASON: Dizziness ORDERING PHYSICIAN: BELGICA EM MD PROCEDURE: HEAD WO - CT HEAD/BRAIN W/O CONTRAST Exam Type: CT HEAD/BRAIN W/O CONTRAST Clinical Information: Dizziness Comparison: None CT Dose Index (CTDI): 57.33 mGy Dose Length Product (DLP): 956.79 total mGy-cm Findings: The examination shows atrophy. There is low attenuation throughout the periventricular white matter locations, consistent with chronic small vessel ischemic changes. No acute intra- or extra-axial fluid collections are seen. There is no evidence of acute or chronic hemorrhage. There is no mass effect or shift of midline structures. There are no areas to suggest acute infarct. The skull windows show no significant abnormalities. IMPRESSION: 1. ATROPHY AND CHRONIC SMALL VESSEL ISCHEMIC CHANGES. This study was performed using dose reduction techniques to include automated exposure control and/or adjustment of the mA and/or kV according to patient size. Assessment/Plan: ASSESSMENT: Dizziness, POA Weakness and deconditioning, POA Hyperlipidemia Depression Osteoporosis Recurrent syncope Autonomic dysfunction Chronotropic incompetence] PLAN: [ Admit patient to medical-surgical floor as inpatient status. Defer decision to consult cardiology service to daytime service. Patient does have an outpatient appointment with her information engineer, Dr. GUERITA Warren on September 25, 2023. Patient states that this dizziness has been longstanding on and off for several years. And is been managed in the outpatient setting. Initiate fall precautions. Follow up with the interrogation of dual-chamber permanent pacemaker. Orthostatic vital signs Neuro checks every 4 hours with the vital signs (check GCS, level of consciousness, extremity movement, pupil reaction, hand grasp strength, speech clarity) Physical therapy for evaluation and treatment Consider resuming home medications once they are reconciled Famotidine 20 mg by mouth once daily for your GI prophylaxis DVT prophylaxis, Lovenox 40 mg subcutaneously daily. Discharge Instructions: ATTESTATION BY PHYSICIAN I have seen and examined the patient. I reviewed the documentation, medical decision making, and treatment plan as noted by the mid-level provider above. I agree with the findings and plan of care. Carmenza Flores MD Home Medications: Reported Medications Biotin (Biotin) 5,000 Mcg Tab.rapdis, 99921 MCG PO DAILY, TAB 09/08/24 Clopidogrel Bisulfate (Clopidogrel) 75 Mg Tablet, 1 TAB PO DAILY for 30 Days, #30 TAB 0 Refills 09/08/24 Duloxetine HCl (Duloxetine HCl) 30 Mg Capsule.dr, 30 MG PO BID, CAP 09/08/24 Aspirin (ASPIRIN 81MG CHEW TAB) 81 Mg Tab.chew, 81 MG PO DAILY, TAB.CHEW 09/08/24 Gabapentin (Gabapentin) 100 Mg Capsule, 1 CAP PO BID for 30 Days, #90 CAP 0 Refills 09/08/24 Amlodipine Besylate (Amlodipine Besylate) 2.5 Mg Tablet, 1 TAB PO DAILY for 30 Days, #30 TAB 0 Refills 09/08/24 Metoprolol Succinate (Metoprolol Succinate) 50 Mg Tab.er.24h, 1 TAB PO DAILY for 30 Days, #30 TAB 0 Refills 09/08/24 Candesartan Cilexetil (Candesartan Cilexetil) 32 Mg Tablet, 32 MG PO AD PRN for htn, TAB 08/24/23 Tizanidine HCl (Tizanidine HCl) 2 Mg Tablet, 4 MG PO AM, TAB 08/24/23 Rosuvastatin Calcium (Rosuvastatin Calcium) 10 Mg Tablet, 10 MG PO HS, TAB 08/24/23 [paracetamd chlorzox] No Conflict Check, 1 TAB PO AM 08/24/23 Sucralfate (Sucralfate) 1 Gram/10 Ml Oral.susp, 1 GM PO BID, ML 08/20/23 Levetiracetam (Keppra) 500 Mg Tablet, 1000 MG PO BID, TAB 07/12/20 Discontinued Reported Medications Pregabalin (Pregabalin) 50 Mg Capsule, 50 MG PO AM, CAP 08/24/23 Meloxicam (Meloxicam) 15 Mg Tablet, 15 MG PO HS PRN for PAIN, TAB 08/24/23 Citalopram Hydrobromide (Citalopram HBr) 10 Mg Tablet, 10 MG PO HS, TAB 08/24/23 Metoprolol Succinate (Metoprolol Succinate) 25 Mg Tab.er.24h, 25 MG PO AD PRN for palpitations, TAB 08/24/23 Multivitamins-Min/FA/Ginkgo (One Daily For Women 50+ Adv Tb) 400 Mcg-120 Mg Tablet, 1 EACH PO AM, TAB 08/24/23 Calcium Carbonate/Vitamin D3 (Caltrate 600 + D Tablet) 600 Mg Calcium-20 Mcg (800 Unit) Tablet, 1 EACH PO BID, TAB 08/24/23 Clonidine HCl (Clonidine HCl) 0.1 Mg Tablet, 0.1 MG PO TID PRN for INCREASED BLOOD PRESSURE, TAB 08/20/23 Time spent arranging discharge: 31-60 minutes (Reviewing, reconciling medications, patient education, and coordinating discharge took greater than 30 minutes) BORIS MCCLAIN Sep 10, 2024 07:35
== END 2024-09-09 16:25 | disposition home or self-care (01) ==
LOC: EDH 13:57 → EDHIP 18:24 → INTOOBSV 18:24 → 4AH 21:55
PROVIDERS: ADMIT Internal Medicine; ATTEND Internal Medicine
DX: R42 Dizziness and giddiness (principal); R53.1 Weakness; M81.0 Age-related osteoporosis without current pathological fracture; R55 Syncope and collapse; G90.9 Disorder of the autonomic nervous system, unspecified; I45.89 Other specified conduction disorders; C85.9A Non-Hodgkin lymphoma, unspecified, in remission; E78.00 Pure hypercholesterolemia, unspecified; I10 Essential (primary) hypertension; F32.A Depression, unspecified; Z90.710 Acquired absence of both cervix and uterus; Z86.73 Personal history of transient ischemic attack (TIA), and cerebral infarction without residual deficits; Z79.899 Other long term (current) drug therapy; Z95.0 Presence of cardiac pacemaker; Z79.82 Long term (current) use of aspirin
CPT/HCPCS: 99285; 82550; 84484 ×2; 80048; 85025; 83605; 81001; 36415; 70450; 93005; 84145; 96372; 97161; 97116; G0378 ×4; J1650